=== PATIENT | male | born 1965 | race Caucasian/White ===

== ENCOUNTER 2017-01-24 03:54 | Inpatient (IN) | payer OTHER ==
[2017-01-24] MEDS ORDERED: NS 1,000 ML IV ONE ×2 (04:04→05:04)
[2017-01-24] MEDS ORDERED: ONDANSETRON 4 MG/2 ML VIAL IVP ONE (04:04)
--- NOTE | 2017-01-24 04:04 | EDPHY ---
H & P Stated Complaint: VOMITING SINCE 013, THINKS TURKEY SUASAGE/FOOD POISONING HPI/ROS: HPI CHIEF COMPLAINT: Right upper quadrant abdominal pain, nausea HISTORY OF PRESENT ILLNESS: This patient very pleasant 51-year-old male no significant medical history does not take any daily medications no surgical history, he presents emergency room after he developed around 130 in the morning severe sharp stabbing right upper quadrant abdominal pain with associated nausea but no vomiting. Denies lower abdominal pain denies chest pain or shortness of breath denies pleuritic pain. Denies fever. Tells me he has had nausea but no episodes of vomiting he tells me wishes he could vomit. The pain is located in his right upper quadrant sharp stabbing comes in waves. He tells me around eight a.m. nine o'clock he ate sausage that around 130 developed sharp stabbing pain. currently his pain is 4/10 right upper quadrant Past Medical History: No medical history Past Surgical History: No surgical history Social History: occasional marijuana use, denies drugs, occasional alcohol use, [place] [employer] Family History: Noncontributory ROS REVIEW OF SYSTEMS: A comprehensive 10 point review of systems is otherwise negative aside from elements mentioned in the history of present illness. Exam Constitutional appears well nontoxic triage nursing summary reviewed, vital signs reviewed, awake/alert. Eyes normal conjunctivae and sclera, EOMI, PERRLA. HENT normal inspection, atraumatic, moist mucus membranes, no epistaxis, neck supple/ no meningismus, no raccoon eyes. Respiratory clear to auscultation bilaterally, normal breath sounds, no respiratory distress, no wheezing. Cardiovascular rate normal, regular rhythm, no murmur, no edema, distal pulses normal. Gastrointestinal soft, tender palpation right upper quadrant , no rebound, no guarding, normal bowel sounds, no distension, no pulsatile mass. Genitourinary no CVA tenderness. Musculoskeletal no midline vertebral tenderness, full range of motion, no calf swelling, no tenderness of extremities, no meningismus, good pulses, neurovascularly intact. Skin pink, warm, & dry, no rash, skin atraumatic. Neurologic awake, alert and oriented x 3, AAOx3, moves all 4 extremities equally, motor intact, sensory intact, CN II-XII intact, normal cerebellar, normal vision, normal speech. Psychiatric normal mood/affect. Heme/Lymph/Immune no lymphadenopathy. Differential diagnosis includes but is not limited to and in no particular order : Biliary colic, gallstones, cholecystitis Bowel obstruction, appendicitis, gallbladder disease, diverticulitis, colitis, enteritis, perforated viscus, gastritis, GERD, esophagitis, urinary tract infection, pyelonephritis, kidney stones Medical Decision Making: Plan for this patient IV establishment he will be hydrated normal saline 1 L, IV Dilaudid for acute pain control IV Zofran for nausea, he will need ultrasound is right upper quadrant given he is focally tender right upper quadrant has sharp stabbing pain and nausea. Re-evaluation: CT scan of the pelvis with IV contrast. The results of the study are acute pancreatitis. The study was read by Dr. Colon I viewed the images myself on the PACS system. 0543AM: Patient's lipase over 20,000, pain epigastric region CTs confirm acute pancreatitis. No gallbladder disease seen on CT or ultrasound. I have updated the patient he understands the need to be admitted to the hospital. 0546: Patient denies alcohol use, denies drinking alcohol this evening. Acute pancreatitis seen on CT scan elevated lipase, no gallbladder disease. the history of black spider bite, no history of trach glycerin and issue. Will sign need to each level. Patient understands be admitted to med surgical bed for acute pancreatitis. Needs aggressive IV hydration nausea medicine pain control. Source: Patient - Personal History Current Tetanus/Diphtheria Vaccine: Yes - Medical/Surgical History Hx Asthma: No Hx Chronic Respiratory Disease: No Hx Diabetes: No Hx Cardiac Disease: No Hx Renal Disease: No Hx Cirrhosis: No Hx Alcoholism: No Hx HIV/AIDS: No Hx Splenectomy or Spleen Trauma: No Other PMH: DENIES - Social History Smoking Status: Current some day smoker Constitutional: Initial Vital Signs Temperature (C) 36.4 C 01/24/17 03:59 Heart Rate 57 L 01/24/17 03:59 Respiratory Rate 20 01/24/17 03:59 Blood Pressure 146/89 H 01/24/17 03:59 O2 Sat (%) 98 01/24/17 03:59 O2 Delivery Mode Room Air O2 (L/minute) 2 Allergies/Adverse Reactions: No Known Allergies Allergy (Unverified 01/24/17 03:58) Medical Decision Making - Data Points Laboratory Results: Laboratory Results 01/24/17 04:25 01/24/17 04:25 01/24/17 01/24/17 01/24/17 05:30 04:25 04:25 WBC 9.82 10^3/uL H 10^3/uL (3.80-9.50) RBC 4.85 10^6/uL 10^6/uL (4.40-6.38) Hgb 14.9 g/dL g/dL (13.7-17.5) Hct 42.3 % % (40.0-51.0) MCV 87.2 fL fL (81.5-99.8) MCH 30.7 pg pg (27.9-34.1) MCHC 35.2 g/dL g/dL (32.4-36.7) RDW 12.4 % % (11.5-15.2) Plt Count 284 10^3/uL 10^3/uL (150-400) MPV 9.6 fL fL (8.7-11.7) Neut % (Auto) 71.8 % % (39.3-74.2) Lymph % (Auto) 21.0 % % (15.0-45.0) [place] % (Auto) 6.1 % % (4.5-13.0) Eos % (Auto) 0.5 % L % (0.6-7.6) Baso % (Auto) 0.4 % % (0.3-1.7) Nucleat RBC Rel Count 0.0 % % (0.0-0.2) Absolute Neuts (auto) 7.05 10^3/uL H 10^3/uL (1.70-6.50) Absolute Lymphs (auto) 2.06 10^3/uL 10^3/uL (1.00-3.00) Absolute Monos (auto) 0.60 10^3/uL 10^3/uL (0.30-0.80) Absolute Eos (auto) 0.05 10^3/uL 10^3/uL (0.03-0.40) Absolute Basos (auto) 0.04 10^3/uL 10^3/uL (0.02-0.10) Absolute Nucleated RBC 0.00 10^3/uL 10^3/uL (0-0.01) Immature Gran % 0.2 % % (0.0-1.1) Immature Gran # 0.02 10^3/uL 10^3/uL (0.00-0.10) VBG Lactic Acid 0.9 mmol/L D mmol/L (0.7-2.1) Sodium 138 mEq/L mEq/L (134-144) Potassium 3.7 mEq/L mEq/L (3.5-5.2) Chloride 104 mEq/L mEq/L (97-110) Carbon Dioxide 20 mEq/l L mEq/l (22-31) Anion Gap 14 mEq/L mEq/L (8-16) BUN 23 mg/dL mg/dL (7-23) Creatinine 0.9 mg/dL mg/dL (0.7-1.3) Estimated GFR > 60 Glucose 129 mg/dL H mg/dL (70-100) Calcium 9.7 mg/dL mg/dL (8.5-10.4) Total Bilirubin 1.0 mg/dL mg/dL (0.1-1.4) Conjugated Bilirubin 0.3 mg/dL mg/dL (0.0-0.5) Unconjugated Bilirubin 0.7 mg/dL mg/dL (0.0-1.1) AST 23 IU/L IU/L (17-59) ALT 33 IU/L IU/L (21-72) Alkaline Phosphatase 72 IU/L IU/L (38-126) Troponin I < 0.012 ng/mL ng/mL (0-0.034) Total Protein 7.4 g/dL g/dL (6.3-8.2) Albumin 4.8 g/dL g/dL (3.5-5.0) Lipase > 60218.0 IU/L H IU/L (23-300) 01/24/17 04:25 WBC RBC Hgb Hct MCV MCH MCHC RDW Plt Count MPV Neut % (Auto) Lymph % (Auto) [place] % (Auto) Eos % (Auto) Baso % (Auto) Nucleat RBC Rel Count Absolute Neuts (auto) Absolute Lymphs (auto) Absolute Monos (auto) Absolute Eos (auto) Absolute Basos (auto) Absolute Nucleated RBC Immature Gran % Immature Gran # VBG Lactic Acid 2.2 mmol/L H mmol/L (0.7-2.1) Sodium Potassium Chloride Carbon Dioxide Anion Gap BUN Creatinine Estimated GFR Glucose Calcium Total Bilirubin Conjugated Bilirubin Unconjugated Bilirubin AST ALT Alkaline Phosphatase Troponin I Total Protein Albumin Lipase Medications Given: Discontinued Medications Hydromorphone HCl (Dilaudid) 1 mg IVP EDNOW ONE Stop: 01/24/17 04:09 Last Admin: 01/24/17 04:26 Dose: 1 mg Sodium Chloride (Ns) 1,000 mls @ 0 mls/hr IV ONCE ONE PRN Reason: Wide Open Stop: 01/24/17 04:05 Last Admin: 01/24/17 04:28 Dose: 1,000 mls Sodium Chloride (Ns) 1,000 mls @ 0 mls/hr IV ONCE ONE PRN Reason: Wide Open Stop: 01/24/17 05:05 Last Admin: 01/24/17 05:23 Dose: 1,000 mls Ondansetron HCl (Zofran) 4 mg IVP EDNOW ONE Stop: 01/24/17 04:05 Last Admin: 01/24/17 04:28 Dose: 4 mg Departure - Departure Disposition: [facility] Inpatient Acute Clinical Impression: Abdominal pain Qualifiers: Abdominal location: epigastric Qualified Code(s): R10.13 - Epigastric pain Pancreatitis Qualifiers: Chronicity: acute Pancreatitis type: other Acute pancreatitis complication: unspecified Qualified Code(s): K85.80 - Other acute pancreatitis without necrosis or infection Condition: Good Referrals: NONE *PRIMARY CARE P,. [Primary Care Provider] - As per Instructions
[2017-01-24] MEDS ORDERED: HYDROmorphONE/DILAUDID 1 MG/ML SYR IVP ONE (04:08)
[2017-01-24 04:38] LABS: % IMMATURE GRANULYOCYTES 0.2 % (0.0-1.1); ABSOLUTE IMMATURE GRANULOCYTES 0.02 10^3/uL (0.00-0.10); ADD DIFF? NO; ADD MORPH? NO; ADD SCAN? NO; ATYPICAL LYMPHOCYTE FLAG 0 (0-99); FRAGMENT RBC FLAG 0 (0-99); HEMATOCRIT 42.3 % (40.0-51.0); HEMOGLOBIN 14.9 g/dL (13.7-17.5); LEFT SHIFT FLG 0 (0-99); LIPEMIA HEMOLYSIS FLAG 90 (0-99); MEAN CELL HEMOGLOBIN 30.7 pg (27.9-34.1); MEAN CELL HEMOGLOBIN CONCENTR. 35.2 g/dL (32.4-36.7); MEAN CELL VOLUME 87.2 fL (81.5-99.8); MEAN PLATELET VOLUME 9.6 fL (8.7-11.7); PLATELET CLUMPS FLAG 10 (0-99); PLATELET COUNT 284 10^3/uL (150-400); RED BLOOD CELL COUNT 4.85 10^6/uL (4.40-6.38); RED CELL DISTRIBUTION WIDTH 12.4 % (11.5-15.2)
--- NOTE | 2017-01-24 04:51 | CPEKG ---
Heart Rate: 57 RR Interval: 1053 P-R Interval: 172 QRSD Interval: 100 QT Interval: 472 QTC Interval: 460 P [place]: 78 QRS [place]: -36 T Wave [place]: 58 EKG Severity - OTHERWISE NORMAL ECG - EKG Impression: SINUS RHYTHM EKG Impression: LEFT AXIS DEVIATION Electronically Signed By: Martínez Key 24-Jan-2017 06:41:29
[2017-01-24 04:53] LABS: ALANINE AMINOTRANSFERASE 33 IU/L (21-72); ALBUMIN 4.8 g/dL (3.5-5.0); ALKALINE PHOSPHATASE 72 IU/L (38-126); ANION GAP 14 mEq/L (8-16); ASPARTATE AMINOTRANSFERASE 23 IU/L (17-59); BILIRUBIN-CONJUGATED 0.3 mg/dL (0.0-0.5); BILIRUBIN-UNCONJUGATED 0.7 mg/dL (0.0-1.1); CALCIUM 9.7 mg/dL (8.5-10.4); CARBON DIOXIDE 20 mEq/l (22-31); CHLORIDE 104 mEq/L (97-110); CREATININE 0.9 mg/dL (0.7-1.3); GLOMERULAR FILTRATION RATE > 60; GLUCOSE 129 mg/dL (70-100); POTASSIUM 3.7 mEq/L (3.5-5.2); SODIUM 138 mEq/L (134-144); TOTAL PROTEIN 7.4 g/dL (6.3-8.2)
[2017-01-24 05:04] LABS: TROPONIN I < 0.012 ng/mL (0-0.034)
[2017-01-24] MEDS ORDERED: IOPAMIDOL (ISOVUE-300) 100 ML BTL IV ONE (05:10)
[2017-01-24 05:57] LABS: ETHANOL SERUM < 10 mg/dL (0-10)
[2017-01-24] MEDS ORDERED: LORazepam 2 MG/ML INJ IVP PRN (06:28)
[2017-01-24] MEDS ORDERED: PROTOCOL MAGNESIUM 1 DOSE IV PRN (06:28)
[2017-01-24] MEDS ORDERED: PROMETHAZINE HCL 25 MG TAB PO PRN (06:28)
[2017-01-24] MEDS ORDERED: PROTOCOL K PHOSPHATE 1 DOSE IV PRN (06:28)
[2017-01-24] MEDS ORDERED: oxyCODONE IR 5 MG TAB PO PRN (06:28)
[2017-01-24] MEDS ORDERED: ONDANSETRON DISINTEGRATING 4 MG TAB PO PRN (06:28)
[2017-01-24] MEDS ORDERED: HYDROmorphONE/DILAUDID 1 MG/ML SYR IVP PRN (06:28)
[2017-01-24] MEDS ORDERED: PROTOCOL CALCIUM 1 DOSE IV PRN (06:28)
[2017-01-24] MEDS ORDERED: ONDANSETRON 4 MG/2 ML VIAL IVP PRN (06:28)
[2017-01-24] MEDS ORDERED: ACETAMINOPHEN 325 MG TAB PO PRN (06:28)
[2017-01-24] MEDS ORDERED: PROTOCOL POTASSIUM 1 DOSE MISC PRN (06:28)
[2017-01-24 07:09] LABS: IONIZED CALCIUM 1.08 MMOL/L (1.12-1.30)
[2017-01-24 07:20] LABS: CHOLESTEROL 234 mg/dL (140-220); CHOLESTEROL/HDL RATIO 2.82 RATIO (1.00-4.97); HIGH DENSITY LIPOPROTEIN 83 mg/dL (40-65); LOW DENSITY LIPOPROTEIN 133 mg/dL (80-100); NON-HIGH DENSITY LIPOPROTEIN 151 mg/dL (90-129); POTASSIUM 3.7 mEq/L (3.5-5.2); TRIGLYCERIDE 92 mg/dL (40-150); VERY LOW DENSITY LIPOPROTEINS 18 mg/dL (8-25)
--- NOTE | 2017-01-24 07:41 | PDGENHP ---
History and Physical - Chief Complaint abdominal pain - History of Present Illness 51 yo M with no significant PMH other than gout and one bout of nephrolithiasis admitted with acute onset of abdominal pain. It began early this morning and he thought initially it was food poisoning, but the pain became so severe that he realized he needed to come to the ER. The pain was largely periumbilical, without radiation, worse with movement or attempting to eat. He has not passed gas for hours and has had very minimal urine output as well. He notes that prior to this he had been feeling quite well, has been in his usual state of health. He is not on any medications, he only takes a bolden extract supplement daily. He does not drink any alcohol for 8 years now but before that he was a fairly heavy drinker, mostly beer, up to 8 per day. He does smoke marijuana essentially daily but denies any other drugs. He has had some weight loss recently, can't say how much, and not intentional though he says he is happy about it as he tried to keep his weight down. ON arrival in the ER, he was found to have a lipase level >20K, he was given IVF and IV dilaudid and currently notes that he feels much better, though the pain is still present, it is much improved. Of note, he has not seen a physician in over 10 years. History Information - Allergies/Home Medication List Allergies/Adverse Reactions: No Known Allergies Allergy (Unverified 01/24/17 03:58) I have personally reviewed and updated: family history, medical history, social history, surgical history - Past Medical History Additional medical history: gout. nephrolithiasis. previous heavy etoh use - Surgical History Reports: no pertinent surgical hx - Family History Positive for: cancer (father of cancer in his 70s, patient thinks it might have been melanoma), stroke (mother in 70s) Additional family history: brother with recent hip fracture - Social History Smoking Status: Current some day smoker Alcohol Use: None (none x 8 years) Drug Use: Marijuana (daily) Review of Systems ROS: 10pt was reviewed & negative except for what was stated in HPI & below Physical Exam Temp Pulse Resp BP Pulse Ox 36.4 C 78 14 149/88 H 98 01/24/17 06:15 01/24/17 06:15 01/24/17 06:15 01/24/17 06:15 01/24/17 06:15 Constitutional: no apparent distress, appears nourished Eyes: PERRL, anicteric sclera Ears, Nose, Mouth, Throat: moist mucous membranes, hearing normal Cardiovascular: regular rate and rhythym, no murmur, rub, or gallop, No edema Respiratory: no respiratory distress, no rales or rhonchi, clear to auscultation Gastrointestinal: tenderness (mild ttp midepigastrium), No normoactive bowel sounds, No ascites, No guarding, No rebound Genitourinary: no bladder tenderness Skin: warm, normal color Musculoskeletal: full muscle strength, no muscle tenderness Neurologic: AAOx3 Psychiatric: interacting appropriately, not anxious, not encephalopathic Lab Data & Imaging Review 01/24/17 04:25 01/24/17 04:25 WBC 9.82 10^3/uL (3.80-9.50) H 01/24/17 04:25 RBC 4.85 10^6/uL (4.40-6.38) 01/24/17 04:25 Hgb 14.9 g/dL (13.7-17.5) 01/24/17 04:25 Hct 42.3 % (40.0-51.0) 01/24/17 04:25 MCV 87.2 fL (81.5-99.8) 01/24/17 04:25 MCH 30.7 pg (27.9-34.1) 01/24/17 04:25 MCHC 35.2 g/dL (32.4-36.7) 01/24/17 04:25 RDW 12.4 % (11.5-15.2) 01/24/17 04:25 Plt Count 284 10^3/uL (150-400) 01/24/17 04:25 MPV 9.6 fL (8.7-11.7) 01/24/17 04:25 Neut % (Auto) 71.8 % (39.3-74.2) 01/24/17 04:25 Lymph % (Auto) 21.0 % (15.0-45.0) 01/24/17 04:25 [place] % (Auto) 6.1 % (4.5-13.0) 01/24/17 04:25 Eos % (Auto) 0.5 % (0.6-7.6) L 01/24/17 04:25 Baso % (Auto) 0.4 % (0.3-1.7) 01/24/17 04:25 Nucleat RBC Rel Count 0.0 % (0.0-0.2) 01/24/17 04:25 Absolute Neuts (auto) 7.05 10^3/uL (1.70-6.50) H 01/24/17 04:25 Absolute Lymphs (auto) 2.06 10^3/uL (1.00-3.00) 01/24/17 04:25 Absolute Monos (auto) 0.60 10^3/uL (0.30-0.80) 01/24/17 04:25 Absolute Eos (auto) 0.05 10^3/uL (0.03-0.40) 01/24/17 04:25 Absolute Basos (auto) 0.04 10^3/uL (0.02-0.10) 01/24/17 04:25 Absolute Nucleated RBC 0.00 10^3/uL (0-0.01) 01/24/17 04:25 Immature Gran % 0.2 % (0.0-1.1) 01/24/17 04:25 Immature Gran # 0.02 10^3/uL (0.00-0.10) 01/24/17 04:25 VBG Lactic Acid 0.9 mmol/L (0.7-2.1) D 01/24/17 05:30 Sodium 138 mEq/L (134-144) 01/24/17 04:25 Potassium 3.7 mEq/L (3.5-5.2) 01/24/17 04:25 Chloride 104 mEq/L (97-110) 01/24/17 04:25 Carbon Dioxide 20 mEq/l (22-31) L 01/24/17 04:25 Anion Gap 14 mEq/L (8-16) 01/24/17 04:25 BUN 23 mg/dL (7-23) 01/24/17 04:25 Creatinine 0.9 mg/dL (0.7-1.3) 01/24/17 04:25 Estimated GFR > 60 01/24/17 04:25 Glucose 129 mg/dL (70-100) H 01/24/17 04:25 Calcium 9.7 mg/dL (8.5-10.4) 01/24/17 04:25 Ionized Calcium 1.08 MMOL/L (1.12-1.30) L 01/24/17 05:30 Phosphorus 2.2 mg/dL (2.5-4.5) L 01/24/17 04:25 Magnesium 2.0 mg/dL (1.6-2.3) 01/24/17 04:25 Total Bilirubin 1.0 mg/dL (0.1-1.4) 01/24/17 04:25 Conjugated Bilirubin 0.3 mg/dL (0.0-0.5) 01/24/17 04:25 Unconjugated Bilirubin 0.7 mg/dL (0.0-1.1) 01/24/17 04:25 AST 23 IU/L (17-59) 01/24/17 04:25 ALT 33 IU/L (21-72) 01/24/17 04:25 Alkaline Phosphatase 72 IU/L (38-126) 01/24/17 04:25 Troponin I < 0.012 ng/mL (0-0.034) 01/24/17 04:25 Total Protein 7.4 g/dL (6.3-8.2) 01/24/17 04:25 Albumin 4.8 g/dL (3.5-5.0) 01/24/17 04:25 Triglycerides 92 mg/dL (40-150) 01/24/17 04:25 Cholesterol 234 mg/dL (140-220) H 01/24/17 04:25 Cholesterol Risk Factr 0.5 (0.2-1.0) 01/24/17 04:25 LDL Cholesterol, Calc 133 mg/dL (80-100) H 01/24/17 04:25 LDL Risk Factor 0.8 (0.2-1.0) 01/24/17 04:25 VLDL Cholesterol 18 mg/dL (8-25) 01/24/17 04:25 Non-HDL Cholesterol 151 mg/dL (90-129) H 01/24/17 04:25 HDL Cholesterol 83 mg/dL (40-65) H 01/24/17 04:25 LDL/HDL Ratio 1.60 RATIO (1.00-3.64) 01/24/17 04:25 Cholesterol/HDL Ratio 2.82 RATIO (1.00-4.97) 01/24/17 04:25 Lipase > 32254.0 IU/L (23-300) H 01/24/17 04:25 Ethyl Alcohol < 10 mg/dL (0-10) 01/24/17 04:45 Visualized and Interpreted imaging results: Yes Interpretation: abd CT: peripancreatic fluid c/w acute pancreatitis, panc head calcifications, no gallstones. abd US: normal Visualized and Interpreted EKG results: Yes EKG Interpretation: Positive for: normal sinsus rhythm EKG additional interpertation: LAD Assessment & Plan Assessment: Abdominal pain (Acute) Pancreatitis (Acute) Plan: 51 yo M with no significant PMH presenting with acute pancreatitis: # acute pancreatitis: with lipase >20K and e/o of both acute and chronic pancreatitis on imaging. Etiology unclear, with no hx of etoh use, no gallstones , no medications to implicate and no anatomic abnormalities on imaging noted. Will start NS at 250, NPO, IV opiates and IV antiemetics. Will check lipid panel and have asked GI to evaluate to determine if further w/u indicated at this point. # hypocalcemia: 2/2 above, repleting on electrolyte protocol # marijuana abuse: unclear if in any way associated with above, counseling on cessation recommended # hypophosphatemia: unclear etiology, does not give a hx suggestive of poor po intake though he mentions that he has had some unusual eating habits recently and in the past, will check vitamin D level, with hx of gout and nephrolithiasis , PTH abnormality possible as well and would have patient f/u on this # rectal pain: patient c/o rectal pain when sitting for long periods of time, due for colonoscopy given age and recommended he f/u for that # dispo: observation status, may require IP stay if not improving symptomatically in next 24 hours Patient new to my care. Old records reviewed and summarized as above, care plan reviewed with ER doctor including plans for tx of pancreatitis. Care plan reviewed with GI who will see in consultation.
[2017-01-24] MEDS: NS 1,000 ML IV SCH ×3 (08:21→16:56)
[2017-01-24] MEDS: ENOXAPARIN 40 MG/0.4 ML SYR SC SCH (08:24)
--- NOTE | 2017-01-24 10:48 | GCON ---
[f rep st] CONSULTATION REFERRING PHYSICIAN: Carie Robledo MD ASSESSMENT: A 51-year-old gentleman presenting with acute pancreatitis. His lipase is greater than 20,000 with normal LFTs. A CT scan shows no evidence of stones or sludge in the gallbladder or bile ducts. He has a few scattered calcifications in the pancreatic head, which does suggest chronic pancreatitis. However, the majority of his pancreas is free of calcifications so this would be very mild chronic pancreatitis. He has acute inflammation as well, consistent with acute pancreatitis. At this point, he has what appears to be idiopathic pancreatitis. He has no obvious biliary disease and does not drink alcohol. He previously drank alcohol 8 years ago, which may account for calcifications in the pancreatic head. The differential includes idiopathic pancreatitis, passed CBD stone/ microlithiasis, and autoimmune pancreatitis, which seems less likely given the appearance of the pancreas on imaging and his clinical history. RECOMMENDATIONS: 1. Continue conservative management for acute pancreatitis with IV hydration and pain control. 2. Continue n.p.o. for today. We may consider advancing his diet to clear liquids tomorrow. 3. Check IgG 4 level. 4. I think it is reasonable to perform an MRCP to look for small stones not visualized on CT scan to explain his acute pancreatitis and I am recommending this be done. 5. We will continue to follow along. Thank you for allowing me to participate in the care of your patient. Please do not hesitate to call with questions. CHIEF COMPLAINT: I was asked to see the patient in consultation by Dr. Robledo for the chief complaint of acute pancreatitis. HISTORY OF PRESENT ILLNESS: The patient is a 51-year-old gentleman, who is otherwise healthy, who presented with acute onset of abdominal pain which began early this morning. The pain initially started out in the periumbilical region and then became more diffuse. He denies any diarrhea. His lipase was 20,000 in the emergency room with normal liver function test. A CT scan shows acute pancreatitis and some chronic pancreatitis with calcifications of the pancreatic head. He does not drink alcohol presently. He previously drank alcohol, up to 8 beers per day, but has not had any for the last 8 years. He has associated nausea and vomiting. He does smoke marijuana on a regular basis. He is an active skier and is able to ski around [place] without difficulty. He has had no need for additional pain medications since admission. REVIEW OF SYSTEMS: CONSTITUTIONAL: Negative. HEENT: Negative. RESPIRATORY: Negative. CARDIOVASCULAR: Negative. GASTROINTESTINAL: See history of present illness for details. Acute periumbilical pain which became more diffuse. Nausea and vomiting. GENITOURINARY: Negative. REPRODUCTIVE/ ENDOCRINE: Negative. MUSCULOSKELETAL: Negative. HEMATOLOGIC/LYMPHATIC: Negative. IMMUNOLOGIC/ALLERGIC/DERMATOLOGIC: Negative. SKIN: Negative. NEUROLOGIC: Negative. MENTAL HEALTH: Negative. PAST MEDICAL HISTORY: 1. Gout. 2. Nephrolithiasis. PAST SURGICAL HISTORY: None. FAMILY HISTORY: No family history noted related to the chief complaint. SOCIAL HISTORY: He has a history of prior heavy alcohol use, but none for the last 8 years. He did not smoke cigarettes. He smokes marijuana on a regular basis. ALLERGIES: No known drug allergies. OUTPATIENT MEDICATIONS: None. INPATIENT MEDICATIONS: 1. As needed Dilaudid. 2. Lovenox 40 mg subcutaneous daily. 3. Lorazepam as needed for anxiety. 4. Zofran 4 mg IV every 4 hours as needed for nausea and vomiting. PHYSICAL EXAMINATION: VITAL SIGNS: Blood pressure 149/88, respirations 14, he is satting 98% on room air, heart rate is 78. He is afebrile with a temperature of 36.4. GENERAL: He is in no apparent distress. He is awake, alert, and interactive. HEENT: PERRL. Oral mucosa moist. CHEST: Breath sounds are clear to auscultation bilaterally without rales, rhonchi, or wheezing. CARDIOVASCULAR: He has a regular heart rate and rhythm. No murmurs , rubs, gallops. Normal S1, S2. ABDOMEN: Soft, nontender, nondistended. Positive bowel sounds. MUSCULOSKELETAL: There is full range of motion. SKIN: [place], warm, well-perfused. No rashes. NEUROLOGIC: Grossly nonfocal. Cranial nerves 2-12 are intact. Coordinated gait. LYMPH NODES: No palpable lymph nodes. PSYCHIATRIC: He is oriented x3 with no mood affect and a normal affect. LABS: White blood cell count 9.8, hemoglobin 14.9, hematocrit 42.3. MCV 87, platelet count 284. Sodium 130, potassium 3.7, chloride 104, carbon dioxide 20 , anion gap of 14, BUN 23, creatinine 0.9. Glucose 129. Calcium 9.7, phosphorus 2.2. Total bilirubin 1. AST 23, ALT 33. Alk phos 72, cholesterol is 234. Lipase greater than 20,000. Triglycerides 92. A CT scan shows acute pancreatitis and calcifications of pancreatic head with a normal biliary tree and gallbladder. /[id number]/MODL MTDD
[2017-01-24] MEDS ORDERED: CALCIUM GLUCONATE 50 ML IV ONE (10:49)
[2017-01-24 11:17] LABS: COLOR YELLOW; LEUKOCYTE ESTERASE,URINE NEGATIVE (NEGATIVE); NITRITE,URINE NEGATIVE (NEGATIVE)
[2017-01-24] MEDS: POTASSIUM Cl (KCl) 100 ML IV SCH ×2 (11:38→12:50)
--- NOTE | 2017-01-24 15:34 | HOSPPROG ---
Hospitalist Progress Note Assessment/Plan: Kalin is a 51 yo M with no significant PMH presenting with acute pancreatitis. He was admitted earlier this morning by Dr Walters. I came by to follow up and be sure questions were answered. # acute pancreatitis: not alcohol related lipase >20K CT scan notes acute pancreatitis with peripancreatic fluid on chronic pancreatitis Etiology unclear (no gallstones,no alcohol use), normal saline at 250/hour aggressive hydration for first 24-48 hours pain management # low vitamin D will need high dose replacement when able to take oral # hypocalcemia: 2/2 above on electrolyte replacement # marijuana abuse: unclear if in any way associated with above, counseling on cessation recommended # hypophosphatemia: has been eating poorly low D level # rectal pain: OP colonoscopy for f/u # dispo: observation status, #plan: cont aggressive hydration, pain management, recheck labs in a.m., appreciate GI seeing him. Subjective: Kalin is feeling better this afternoon.Pain is better. Objective: Vital Signs Temp Pulse Resp BP Pulse Ox 36.4 C 78 14 149/88 H 98 01/24/17 06:15 01/24/17 06:15 01/24/17 06:15 01/24/17 06:15 01/24/17 06:15 01/23/17 01/24/17 01/25/17 05:59 05:59 05:59 Intake Total 2000 Output Total 200 Balance 1800 - Physical Exam Constitutional: uncomfortable Eyes: PERRL Ears, Nose, Mouth, Throat: hearing normal Respiratory: no respiratory distress Skin: warm Musculoskeletal: full muscle strength Neurologic: AAOx3 Psychiatric: interacting appropriately, not anxious ICD10 Worksheet Patient Problems: Problems Problem Status Onset Abdominal pain Acute Pancreatitis Acute
[2017-01-24 19:17] LABS: POTASSIUM 4.2 mEq/L (3.5-5.2)
[2017-01-25] MEDS: NS 1,000 ML IV SCH ×4 (02:39→20:53)
[2017-01-25 05:14] LABS: IONIZED CALCIUM 1.12 MMOL/L (1.12-1.30)
[2017-01-25 05:15] LABS: % IMMATURE GRANULYOCYTES 0.4 % (0.0-1.1); ABSOLUTE IMMATURE GRANULOCYTES 0.03 10^3/uL (0.00-0.10); ADD DIFF? NO; ADD MORPH? NO; ADD SCAN? NO; ATYPICAL LYMPHOCYTE FLAG 0 (0-99); FRAGMENT RBC FLAG 0 (0-99); HEMATOCRIT 35.4 % (40.0-51.0); HEMOGLOBIN 12.2 g/dL (13.7-17.5); LEFT SHIFT FLG 0 (0-99); LIPEMIA HEMOLYSIS FLAG 90 (0-99); MEAN CELL HEMOGLOBIN 30.9 pg (27.9-34.1); MEAN CELL HEMOGLOBIN CONCENTR. 34.5 g/dL (32.4-36.7); MEAN CELL VOLUME 89.6 fL (81.5-99.8); MEAN PLATELET VOLUME 9.6 fL (8.7-11.7); PLATELET CLUMPS FLAG 0 (0-99); PLATELET COUNT 222 10^3/uL (150-400); RED BLOOD CELL COUNT 3.95 10^6/uL (4.40-6.38); RED CELL DISTRIBUTION WIDTH 12.5 % (11.5-15.2)
[2017-01-25 05:37] LABS: ALANINE AMINOTRANSFERASE 29 IU/L (21-72); ALBUMIN 3.2 g/dL (3.5-5.0); ALKALINE PHOSPHATASE 44 IU/L (38-126); ANION GAP 8 mEq/L (8-16); ASPARTATE AMINOTRANSFERASE 16 IU/L (17-59); CALCIUM 8.2 mg/dL (8.5-10.4); CARBON DIOXIDE 19 mEq/l (22-31); CHLORIDE 110 mEq/L (97-110); CREATININE 0.7 mg/dL (0.7-1.3); GLOMERULAR FILTRATION RATE > 60; GLUCOSE 85 mg/dL (70-100); MAGNESIUM 1.6 mg/dL (1.6-2.3); SODIUM 137 mEq/L (134-144); TOTAL PROTEIN 5.3 g/dL (6.3-8.2)
[2017-01-25] MEDS ORDERED: MAGNESIUM SULF 1 GM/DEXTROSE 100 ML IV ONE (08:03)
[2017-01-25] MEDS ORDERED: CALCIUM GLUCONATE 50 ML IV ONE (08:03)
[2017-01-25] MEDS: ENOXAPARIN 40 MG/0.4 ML SYR SC SCH (08:09)
--- NOTE | 2017-01-25 09:24 | HOSPPROG ---
Hospitalist Progress Note Assessment/Plan: Kalin is a 51 yo M with no significant PMH presenting with acute pancreatitis. Today is my first encounter with the patient, chart reviewed. # acute pancreatitis: not alcohol related lipase >20K on admit, now <5,000 CT scan notes acute pancreatitis with peripancreatic fluid on chronic pancreatitis Etiology unclear (no gallstones,no alcohol use), decrease iv fluids trial of cl liquids triglycerides are stable # low vitamin D should be started on 800-1000 units of Vitamin D daily recheck levels in 3 months # hypocalcemia: 2/2 above resolved #hyperlipidemia elevated cholesterol and LDH recommending statin once he is feeling better # marijuana abuse: unclear if in any way associated with above, counseling on cessation recommended # hypophosphatemia: resolved low D level # rectal pain: OP colonoscopy for f/u no c/o this today # dispo: will require another midnight stay to see if he can eat and drink # plan: continue hydration, pain management, recheck labs in a.m., appreciate GI seeing him. Subjective: Kalin is feeling much improved today/ abdominal pain is better. Has some epigastric pain. Objective: Vital Signs Temp Pulse Resp BP Pulse Ox 36.6 C 66 14 131/72 H 96 01/25/17 07:35 01/25/17 07:35 01/25/17 07:35 01/25/17 07:35 01/25/17 07:35 Laboratory Results 01/25/17 04:49 01/25/17 04:49 01/24/17 01/25/17 01/26/17 05:59 05:59 05:59 Intake Total 6952 Output Total 200 200 Balance 6752 -200 - Physical Exam Constitutional: no apparent distress, No not in pain (epigastric area) Ears, Nose, Mouth, Throat: hearing normal Cardiovascular: regular rate and rhythym Respiratory: no respiratory distress Gastrointestinal: normoactive bowel sounds, tenderness Skin: warm Musculoskeletal: full muscle strength Neurologic: AAOx3 Psychiatric: interacting appropriately ICD10 Worksheet Patient Problems: Problems Problem Status Onset Abdominal pain Acute Pancreatitis Acute
--- NOTE | 2017-01-25 16:14 | SOAPPROG ---
SOAP Progress Note Assessment/Plan: Assessment: 51 yr old male with acute idiopathic pancreatitis. Clinically improving and feels hungry. MRCP normal. Plan: - Advance diet to general low fat - Possible d/c tomorrow if tolerating a diet - Thank you 01/25/17 16:11 01/25/17 16:15 Subjective: Feeling better. Denies abdominal pain. Wants to eat. Objective: Vital Signs Temp Pulse Resp BP Pulse Ox 37.1 C 62 12 131/79 H 98 01/25/17 15:10 01/25/17 15:10 01/25/17 15:10 01/25/17 15:10 01/25/17 15:10 01/24/17 01/25/17 01/26/17 05:59 05:59 05:59 Output Total 550 Balance -550 Physical Exam - Physical Exam General Appearance: WD/WN, alert EENT: PERRL/EOMI Respiratory: chest non-tender, lungs clear Cardiac/Chest: regular rate, rhythm Abdomen: normal bowel sounds, non-tender, soft Skin: normal color ICD10 Worksheet Patient Problems: Problems Problem Status Onset Abdominal pain Acute Pancreatitis Acute
[2017-01-25 18:29] LABS: POTASSIUM 3.9 mEq/L (3.5-5.2)
[2017-01-25] MEDS ORDERED: POTASSIUM CL 10 MEQ TAB PO ONE (20:19)
[2017-01-26 05:16] LABS: % IMMATURE GRANULYOCYTES 0.3 % (0.0-1.1); ABSOLUTE IMMATURE GRANULOCYTES 0.02 10^3/uL (0.00-0.10); ADD DIFF? NO; ADD MORPH? NO; ADD SCAN? NO; ATYPICAL LYMPHOCYTE FLAG 0 (0-99); FRAGMENT RBC FLAG 0 (0-99); HEMATOCRIT 34.7 % (40.0-51.0); HEMOGLOBIN 12.2 g/dL (13.7-17.5); LEFT SHIFT FLG 0 (0-99); LIPEMIA HEMOLYSIS FLAG 90 (0-99); MEAN CELL HEMOGLOBIN 30.8 pg (27.9-34.1); MEAN CELL HEMOGLOBIN CONCENTR. 35.2 g/dL (32.4-36.7); MEAN CELL VOLUME 87.6 fL (81.5-99.8); MEAN PLATELET VOLUME 9.9 fL (8.7-11.7); PLATELET CLUMPS FLAG 0 (0-99); PLATELET COUNT 214 10^3/uL (150-400); RED BLOOD CELL COUNT 3.96 10^6/uL (4.40-6.38); RED CELL DISTRIBUTION WIDTH 12.2 % (11.5-15.2)
[2017-01-26 05:47] LABS: ALANINE AMINOTRANSFERASE 27 IU/L (21-72); ALBUMIN 3.3 g/dL (3.5-5.0); ALKALINE PHOSPHATASE 44 IU/L (38-126); ANION GAP 7 mEq/L (8-16); ASPARTATE AMINOTRANSFERASE 13 IU/L (17-59); CALCIUM 8.4 mg/dL (8.5-10.4); CARBON DIOXIDE 25 mEq/l (22-31); CHLORIDE 106 mEq/L (97-110); CREATININE 0.6 mg/dL (0.7-1.3); GLOMERULAR FILTRATION RATE > 60; GLUCOSE 91 mg/dL (70-100); MAGNESIUM 1.6 mg/dL (1.6-2.3); POTASSIUM 4.2 mEq/L (3.5-5.2); SODIUM 138 mEq/L (134-144); TOTAL PROTEIN 5.4 g/dL (6.3-8.2)
[2017-01-26 08:10] VITALS: RESP 16
[2017-01-26] MEDS: NS 1,000 ML IV SCH (08:11)
[2017-01-26] MEDS: ENOXAPARIN 40 MG/0.4 ML SYR SC SCH (08:12)
[2017-01-26] MEDS ORDERED: CALCIUM GLUCONATE 50 ML IV ONE (08:15)
[2017-01-26] MEDS ORDERED: MAGNESIUM SULF 1 GM/DEXTROSE 100 ML IV ONE ×2 (08:16→10:30)
--- NOTE | 2017-01-26 09:27 | SOAPPROG ---
SOAP Progress Note Assessment/Plan: Assessment: 51 yr old male with acute idiopathic pancreatitis. Tolerating general low fat diet. Denies abdominal pain. Ready for discharge. Plan: - Okay from GI standpoint to discharge - Follow up with GI as needed - Thank you 01/26/17 09:25 Subjective: Feels well. No abdominal. Tolerating a general low fat diet. Ready for discharge. Objective: Vital Signs Temp Pulse Resp BP Pulse Ox 36.9 C 65 16 122/72 H 97 01/26/17 08:09 01/26/17 08:09 01/26/17 08:09 01/26/17 08:09 01/26/17 08:09 Laboratory Results 01/26/17 04:44 01/26/17 04:44 01/25/17 01/26/17 01/27/17 05:59 05:59 05:59 Intake Total 2310 1900 Output Total 2850 500 Balance -540 1400 Physical Exam - Physical Exam General Appearance: WD/WN, alert EENT: PERRL/EOMI Respiratory: chest non-tender, lungs clear Cardiac/Chest: regular rate, rhythm Abdomen: normal bowel sounds, non-tender, soft ICD10 Worksheet Patient Problems: Problems Problem Status Onset Abdominal pain Acute Pancreatitis Acute
--- NOTE | 2017-01-26 09:34 | HOSPPROG ---
Hospitalist Progress Note Assessment/Plan: Kalin is a 51 yo M with no significant PMH presenting with acute pancreatitis. # acute pancreatitis: not alcohol related lipase >20K on admit, now <5,000 CT scan notes acute pancreatitis with peripancreatic fluid on chronic pancreatitis Etiology unclear (no gallstones,no alcohol use), eating and drinking well/no pain today triglycerides are stable # low vitamin D 1000 units of Vitamin D daily recheck levels in 3 months # hypocalcemia: 2/2 above resolved #hyperlipidemia elevated cholesterol and LDH recommending statin once he is feeling better # marijuana abuse: unclear if in any way associated with above, counseling on cessation recommended # hypophosphatemia: resolved low D level # rectal pain: OP colonoscopy for f/u no c/o this today # dispo: dc home Subjective: Taiwo has no pain, feeling well. Objective: Vital Signs Temp Pulse Resp BP Pulse Ox 36.9 C 65 16 122/72 H 97 01/26/17 08:09 01/26/17 08:09 01/26/17 08:09 01/26/17 08:09 01/26/17 08:09 Laboratory Results 01/26/17 04:44 01/26/17 04:44 01/25/17 01/26/17 01/27/17 05:59 05:59 05:59 Intake Total 2310 1900 Output Total 2850 500 Balance -540 1400 - Physical Exam Constitutional: no apparent distress, appears nourished, not in pain Eyes: PERRL Ears, Nose, Mouth, Throat: hearing normal Cardiovascular: regular rate and rhythym Respiratory: no respiratory distress Gastrointestinal: normoactive bowel sounds, soft, non-tender abdomen Skin: warm, normal color Musculoskeletal: full muscle strength Neurologic: AAOx3 Psychiatric: interacting appropriately, not anxious ICD10 Worksheet Patient Problems: Problems Problem Status Onset Abdominal pain Acute Pancreatitis Acute
[2017-01-26 12:20] VITALS: BP 129/83; PULSE 70; TEMP 98.9; O2SAT 95
--- NOTE | 2017-01-26 13:04 | GDS ---
[f rep st] DISCHARGE SUMMARY DISCHARGE DIAGNOSES: 1. Acute on chronic pancreatitis. 2. Low vitamin D. 3. Hypocalcemia. 4. Hyperlipidemia. 5. Cannabis use. 6. Hypophosphatemia. 7. Rectal pain. CONSULTATIONS: Dr. Abram Nova with Gastroenterology. BRIEF HISTORY: The patient is a very nice 51-year-old male without any significant past medical history, other than gout and 1 bout of nephrolithiasis. He was admitted with acute onset of abdominal pain. Initially he thought it was food poisoning, but it became so severe, he realized he needed to come the ER. It was mainly in the periumbilical area, worse with any movement or any time he would try to eat. He has a history of drinking alcohol, but quit drinking 8 years ago. He smokes cannabis daily, but denies any other use of any type of substance. In the emergency room, he was noted to have a lipase greater than 20,000. He was seen by Dr. Nova with gastroenterology. He improved throughout his stay. Today, he is eating very well. Recommendation is for a low-fat diet and further followup with Gastroenterology. HOSPITAL COURSE PER PROBLEM: 1. [id number] pancreatitis/idiopathic. CT scan noted that he had acute pancreatitis with peripancreatic fluid, on chronic pancreatitis. He has not been drinking. His triglycerides are stable. Recommending a low fat diet. 2. Low vitamin D level. Recommended he stay on 1000 International Units daily. He needs to get his vitamin D level checked in 3 months. 3. Hypocalcemia . Resolved. 4. Hyperlipidemia. He has elevated cholesterol and LDH. Recommending statin therapy. 5. Cannabis use. Counseled on cessation. 6. Hypophosphatemia, resolved. 7. Rectal pain, resolved. PENDING LABS AND TESTS: None. CONDITION AT DISCHARGE: Stable vital signs. Blood pressure is 122/72, heart rate is 75, respiratory rate is 16, O2 sats on room air is 97%, temp is 36.9 Celsius. MEDICATIONS AT DISCHARGE: Please see the EMR. DISCHARGE INSTRUCTIONS: 1. He needs to get outpatient followup in regard to getting a colonoscopy and monitoring of his pancreas. Gave him physician names to see. 2. Continue the low-fat diet. 3. Congratulating him on stopping all alcohol use 8 years ago. Greater than 30 minutes discharging and coordinating care. /[id number]/MODL MTDD
== END 2017-01-26 12:54 | disposition home or self-care (01) | DRG 440 ==
LOC: INTOOBSV 05:45 → F3E 06:10 → OBSVTOIN 01-25 09:23
PROVIDERS: ADMIT Internal Medicine; ATTEND Internal Medicine
DX: K85.90 Acute pancreatitis without necrosis or infection, unspecified (principal); K86.1 Other chronic pancreatitis; E78.5 Hyperlipidemia, unspecified; E83.51 Hypocalcemia; F12.10 Cannabis abuse, uncomplicated; E83.39 Other disorders of phosphorus metabolism; K62.89 Other specified diseases of anus and rectum; Z72.0 Tobacco use
CPT/HCPCS: 96374; G0378; G0480; J0610; J1170; J1650; J2405; J3475; Q9967